=== PATIENT | male | born 1950 | race African-American/Black ===

== ENCOUNTER 2020-12-13 11:11 | Emergency (ER) | payer MEDICARE, MEDICAID ==
[~2020-12-13] VITALS: Ht 175.3 cm; Wt 79.0 kg
[~2020-12-13 11:11] MED LIST: ALBU18HF2 IH; AMLO5TAB88 PO; GLIP10TA10 PO; NAPR-681 PO; OMEP20CA14 PO; P-EP-29 PO; PRAV40TA58 PO; SIMV20TA2 PO; TAMS-11 PO
[2020-12-13 12:27] LABS: CHLORIDE 106 mEq/L (98-107)
[2020-12-13 12:29] LABS: BASOPHILS % 0.9 % (0.0-2.0); EOSINOPHILS % 2.8 % (0.0-5.0); HEMATOCRIT. 35.8 % (42.0-52.0); HEMOGLOBIN. 12.2 g/dL (14.0-18.0); LYMPHOCYTES % 13.9 % (20.0-50.0); MEAN CORPUSCULAR HEMOGLOBIN 31.3 pg (28.0-32.0); MEAN CORPUSCULAR VOLUME 91.9 fL (80.0-94.0); MEAN PLATELET VOLUME 8.5 fl (7.4-10.4); MONOCYTES % 8.8 % (2.0-8.0); NEUTROPHILS % 73.6 % (40.0-76.0); PLATELET 160 x1000/uL (130-400); RED BLOOD CELL COUNT 3.89 mill/uL (4.7-6.1); RED CELL DISTRIBUTION WIDTH 13.2 % (11.6-14.6)
[2020-12-13 22:00] VITALS: BP 142/73
[2020-12-13] MEDS ORDERED: IOHEXOL-350 100 ML BOTTLE ONE (22:12)
== END 2020-12-13 23:30 | disposition short-term general hospital (02) ==
LOC: ER 11:11 → SUPCPDRO 15:09 → ER 23:30
DX: R00.2 Palpitations (principal); I49.8 Other specified cardiac arrhythmias; R26.9 Unspecified abnormalities of gait and mobility; J44.1 Chronic obstructive pulmonary disease with (acute) exacerbation; I10 Essential (primary) hypertension; E11.65 Type 2 diabetes mellitus with hyperglycemia; E78.00 Pure hypercholesterolemia, unspecified; N40.0 Benign prostatic hyperplasia without lower urinary tract symptoms; D64.9 Anemia, unspecified; Z20.822 Contact with and (suspected) exposure to COVID-19; Z86.718 Personal history of other venous thrombosis and embolism; Z79.01 Long term (current) use of anticoagulants; Z91.013 Allergy to seafood; Z88.0 Allergy status to penicillin
CPT/HCPCS: 36415; 71045; 71275; 80053; 83880; 84484; 85025; 87426; 93005; 99284; Q9967